=== PATIENT | male | born 1945 | race Caucasian/White ===

== ENCOUNTER 2019-03-30 07:07 | Emergency (ER) | payer MEDICARE, OTHER ==
[2019-03-30 07:21] VITALS: BP 165/64; PULSE 78
--- NOTE | 2019-03-30 08:55 | EDM.PDOC ---
ED HPI GENERAL MEDICAL PROBLEM - General Chief Complaint: General Stated Complaint: Right knee pain Time Seen by Provider: 03/30/19 08:00 Source of Information: Reports: Patient History Limitations: Reports: No Limitations - History of Present Illness INITIAL COMMENTS - FREE TEXT/NARRATIVE: Patient is a 73-year-old who seen with chief complaint of right knee pain which is been going on for 2 or 3 days patient is able to flex and extend the x-ray revealed significant degenerative joint disease Onset: Gradual Duration: Day(s):, Getting Worse Location: Reports: Lower Extremity, Right Quality: Reports: Ache, Sharp, Stabbing Severity: Moderate Improves with: Reports: Cold Therapy Worsens with: Reports: Movement Treatments CHROME [employer]ER: Reports: Acetaminophen, NSAIDS Right Knee Pain Score (Numeric/FACES): 9 - Related Data Allergies Allergy/AdvReac Type Severity Reaction Status Date / Time No Known Allergies Allergy Verified 03/30/19 07:21 Home Meds: Home Meds Aspirin [[place] Aspirin] 81 mg PO DAILY 06/15/13 [History] Escitalopram Oxalate [Lexapro] 30 mg PO DAILY 06/15/13 [History] Pregabalin [Lyrica] 75 mg PO TID 06/15/13 [History] glipiZIDE [Glipizide ER] 15 mg PO DAILY 06/15/13 [History] Dronabinol [Marinol] 2.5 mg PO BID PRN 08/25/14 [History] Pravastatin [Pravachol] 20 mg PO DAILY 08/25/14 [History] lamoTRIgine [Lamictal] 250 mg PO BID 08/25/14 [History] Cetirizine [ZyrTEC] 1 tab PO DAILY 03/30/19 [History] Empagliflozin [Jardiance] 25 mg PO DAILY 03/30/19 [History] Fish Oil/[place]-3 Fatty Acids [Fish Oil 1,000 MG] 03/30/19 [History] Gabapentin [Neurontin] 100 mg PO TID 03/30/19 [History] Lisinopril [Prinivil] 5 mg PO DAILY 03/30/19 [History] Pramipexole [Mirapex] 2 tab PO BID 03/30/19 [History] Ranitidine HCl [Acid Tubing Machine Tender] 75 mg PO DAILY 03/30/19 [History] SitaGLIPtin [Januvia] 100 mg PO DAILY 03/30/19 [History] traZODone HCl [Trazodone HCl] 50 mg PO BEDTIME 03/30/19 [History] Social & Family History - Living Situation & Occupation Occupation: Disabled ED ROS GENERAL - Review of Systems Review Of Systems: See Below Constitutional: Reports: Weakness HEENT: Reports: No Symptoms Respiratory: Reports: Shortness of Breath Cardiovascular: Reports: No Symptoms Endocrine: Reports: No Symptoms GI/Abdominal: Reports: No Symptoms : Reports: No Symptoms Musculoskeletal: Reports: Joint Pain Skin: Reports: No Symptoms Neurological: Reports: No Symptoms Psychiatric: Reports: No Symptoms Hematologic/Lymphatic: Reports: No Symptoms Immunologic: Reports: No Symptoms ED EXAM, GENERAL - Physical Exam Exam: See Below Exam Limited By: No Limitations General Appearance: Alert, WD/WN, No Apparent Distress Ears: Normal External Exam, Normal Canal, Hearing Grossly Normal, Normal TMs Ear Exam: Bilateral Ear: Auricle Normal, Canal Normal, TM normal Nose: Normal Inspection, Normal Mucosa, No Blood Throat/Mouth: Normal Inspection, Normal Lips, Normal Teeth, Normal Gums, Normal Oropharynx, Normal Voice, No Airway Compromise Head: Atraumatic, Normocephalic Neck: Normal Inspection, Supple, Non-Tender, Full Range of Motion Respiratory/Chest: No Respiratory Distress, Lungs Clear, Normal Breath Sounds, No Accessory Muscle Use, Chest Non-Tender Cardiovascular: Normal Peripheral Pulses, Regular Rate, Rhythm, No Edema, No Gallop, No JVD, No Murmur, No Rub GI/Abdominal: Normal Bowel Sounds, Soft, Non-Tender, No Organomegaly, No Distention, No Abnormal Bruit, No Mass (Male) Exam: Deferred Rectal (Males) Exam: Deferred Back Exam: Decreased Range of Motion Extremities: Joint Swelling, Limited Range of Motion Neurological: Alert, Oriented, CN II-XII Intact Psychiatric: Normal Affect, Normal Mood Skin Exam: Warm, Dry, Intact, Normal Color, No Rash Lymphatic: No Adenopathy Course - Vital Signs Last Recorded V/S: Last Vital Signs Temp 98.6 F 03/30/19 07:08 Pulse 78 03/30/19 07:08 Resp 16 03/30/19 07:08 BP 165/64 H 03/30/19 07:08 Pulse Ox 98 03/30/19 07:08 - Orders/Labs/Meds Orders: Active Orders 24 hr Category Date Time Status Head wo Cont [CT] Stat Exams 03/30/19 08:01 Stop Req Knee 3V Rt [CR] Stat Exams 03/30/19 08:16 Taken BASIC METABOLIC PANEL,BMP [CHEM] Stat Lab 03/30/19 08:30 Received CRP [C-REACTIVE PROTEIN] [CHEM] Stat Lab 03/30/19 08:30 Received DD [D-DIMER QUANTITATIVE] [COAG] Stat Lab 03/30/19 08:30 Received Labs: Laboratory Tests 03/30/19 Range/Units 08:30 WBC 9.1 (4.0-10.2) K/uL RBC 4.92 (4.33-5.41) M/uL Hgb 15.3 (13.1-16.8) g/dL Hct 45.4 (39.0-49.0) % MCV 92.3 (84.0-98.0) fL MCH 31.1 (28.2-33.3) pg MCHC 33.7 (31.7-36.0) g/dL RDW 12.3 (11.2-14.1) % Plt Count 248 (150-350) K/uL Neut % (Auto) 66.3 (45.0-80.0) % Lymph % (Auto) 22.1 (10.0-50.0) % [place] % (Auto) 6.5 (2.0-14.0) % Eos % (Auto) 4.0 (0.0-5.0) % Baso % (Auto) 1.1 (0.0-2.0) % Neut # (Auto) 6.02 (1.40-7.00) K/uL Lymph # (Auto) 2.01 (0.50-3.50) K/uL [place] # (Auto) 0.59 (0.00-1.00) K/uL Eos # (Auto) 0.36 (0.00-0.50) K/uL Baso # (Auto) 0.10 (0.00-0.20) K/uL Departure - Departure Time of Disposition: 08:55 Disposition: Home, Self-Care 01 Condition: Fair Clinical Impression: Right knee DJD - Discharge Information *PRESCRIPTION DRUG MONITORING PROGRAM REVIEWED*: No *COPY OF PRESCRIPTION DRUG MONITORING REPORT IN PATIENT SHANYA: No Referrals: Isa Phelps, [employer] [Primary Care Provider] - Care Plan Goals: Patient will be sent home and referred to Dr. Dumont with orthopedics for possible Synvisc injection patient is a diabetic. - My Orders Last 24 Hours: My Active Orders 03/30/19 08:01 Head wo Cont [CT] Stat 03/30/19 08:16 Knee 3V Rt [CR] Stat 03/30/19 08:30 BASIC METABOLIC PANEL,BMP [CHEM] Stat CRP [C-REACTIVE PROTEIN] [CHEM] Stat DD [D-DIMER QUANTITATIVE] [COAG] Stat - Assessment/Plan Last 24 Hours: My Active Orders 03/30/19 08:01 Head wo Cont [CT] Stat 03/30/19 08:16 Knee 3V Rt [CR] Stat 03/30/19 08:30 BASIC METABOLIC PANEL,BMP [CHEM] Stat CRP [C-REACTIVE PROTEIN] [CHEM] Stat DD [D-DIMER QUANTITATIVE] [COAG] Stat
== END 2019-03-30 09:15 | disposition home or self-care (01) ==
LOC: LL.ED 07:07
DX: M17.11 Unilateral primary osteoarthritis, right knee (principal); E11.9 Type 2 diabetes mellitus without complications; Z79.82 Long term (current) use of aspirin; Z79.84 Long term (current) use of oral hypoglycemic drugs
CPT/HCPCS: 36415; 73562-RT; 80048; 85025; 85379; 86140; 99282; 99283-25

== ENCOUNTER 2021-07-07 16:31 | Emergency (ER) | payer OTHER ==
[2021-07-07 16:51] VITALS: BP 146/50; PULSE 78
[2021-07-07 17:33] LABS: ANION GAP 9.6 meq/L (7-15); CHLORIDE,CL 101 mmol/L (98-107); SODIUM,NA 138 mmol/L (136-145)
[2021-07-07 17:55] LABS: RESPIRATORY SYNCYTIAL VIR NAA NEGATIVE (NEGATIVE)
[2021-07-07 18:00] LABS: CORONAVIRUS COVID-19 NAA POSITIVE (NEGATIVE)
== END 2021-07-07 18:30 | disposition home or self-care (01) ==
LOC: LL.ED 16:31
DX: U07.1 COVID-19 (principal); K21.9 Gastro-esophageal reflux disease without esophagitis; E11.9 Type 2 diabetes mellitus without complications; E78.00 Pure hypercholesterolemia, unspecified; I10 Essential (primary) hypertension; E66.9 Obesity, unspecified; Z68.30 Body mass index [BMI] 30.0-30.9, adult; Z79.82 Long term (current) use of aspirin; Z87.891 Personal history of nicotine dependence; Z79.899 Other long term (current) drug therapy
CPT/HCPCS: 0241U; 36415; 71046; 80053; 81001; 83605; 83735; 85025; 87086; 99284-25

== ENCOUNTER 2022-11-22 07:52 | Emergency (ER) | payer OTHER, MEDICARE ==
[2022-11-22] MEDS ORDERED: Sodium Chloride 0.9% 10 ML Syringe FLUSH PRN (08:21)
[2022-11-22] MEDS ORDERED: Insulin Regular, Human 100 Units/ML 3 ML Vial IV ONE (08:22)
[2022-11-22] MEDS ORDERED: Glucagon,Human Recombinant 1 MG Vial IM PRN (08:22)
[2022-11-22] MEDS ORDERED: 50% Dextrose in Water 50 ML Syringe IVPUSH PRN (08:22)
[2022-11-22 08:28] LABS: BASOPHILS ABSOLUTE AUTO 0.04 K/uL (0.00-0.20); BASOPHILS PERCENT AUTO 0.2 % (0.0-2.0); EOSINOPHILS ABSOLUTE AUTO 0.01 K/uL (0.00-0.50); HEMATOCRIT 36.9 % (39.0-49.0); LYMPHOCYTES ABSOLUTE AUTO 1.19 K/uL (0.50-3.50); LYMPHOCYTES PERCENT AUTO 5.8 % (10.0-50.0); MEAN CORPUSCULAR HEMOGLOBIN 29.6 pg (28.2-33.3); MEAN CORPUSCULAR HGB CONC 32.5 g/dL (31.7-36.0); MEAN CORPUSCULAR VOLUME 90.9 fL (84.0-98.0); MONOCYTES ABSOLUTE AUTO 0.52 K/uL (0.00-1.00); MONOCYTES PERCENT AUTO 2.5 % (2.0-14.0); NEUTROPHILS PERCENT AUTO 91.5 % (45.0-80.0); PLATELET COUNT,PLT 263 K/uL (150-350); RED BLOOD CELL COUNT 4.06 M/uL (4.33-5.41); RED CELL DISTRIBUTION WIDTH 13.4 % (11.2-14.1); WHITE BLOOD CELL COUNT,WBC 20.6 K/uL (4.0-10.2)
[2022-11-22] MEDS ORDERED: Sodium Chloride 0.9% 1,000 ML IV ONE (08:31)
[2022-11-22] MEDS: Nitroglycerin 0.4 MG Tab.SL SL PRN ×3 (08:31→09:03)
[2022-11-22 09:04] LABS: ALANINE AMINOTRANSFERASE,ALT 33 U/L (12-78); ALBUMIN 3.6 g/dL (3.4-5.0); ALKALINE PHOSPHATASE 169 IU/L (46-116); ASPARTATE AMNIOTRANSFERASE,AST 19 U/L (15-37); BILIRUBIN TOTAL 0.3 mg/dL (0.2-1.0); BLOOD UREA NITROGEN,BUN 63 mg/dL (7-18); CALCIUM 9.3 mg/dL (8.5-10.1); CARBON DIOXIDE,CO2 17.8 mmol/L (21.0-32.0); CHLORIDE,CL 98 mmol/L (98-107); CREATINE KINASE,CK 196 U/L (26-308); CREATININE 2.45 mg/dL (0.51-1.17); PRO B-TYPE NATRIUR PEPT,BNPPRO 1795 pg/mL (0-125); PROTEIN TOTAL,TP 7.4 g/dL (6.4-8.2); SODIUM,NA 129 mmol/L (136-145)
[2022-11-22 09:14] LABS: ESTIMATED GFR 26 mL/min (>=60); GLUCOSE RANDOM 592 mg/dL (70-99); POTASSIUM,K 5.8 mmol/L (3.5-5.1)
[2022-11-22] MEDS ORDERED: Heparin Sodium 5,000 Units/ML Vial IVPUSH ONE (12:04)
[2022-11-22] MEDS ORDERED: Aspirin 81 MG Tab.Chew PO ONE (12:06)
[2022-11-22] MEDS ORDERED: Heparin Sodium/0.45% NaCl 500 ML IV SCH (12:15)
[2022-11-22 12:48] VITALS: PULSE 66
[2022-11-22 12:58] LABS: APPEARANCE,URINE CLEAR; BILIRUBIN,URINE NEGATIVE (NEGATIVE); COLOR,URINE YELLOW; GLUCOSE,URINE 500 mg/dL (NEGATIVE); KETONES,URINE NEGATIVE (NEGATIVE); LEUKOCYTE ESTERASE,URINE NEGATIVE (NEGATIVE); NITRITE,URINE NEGATIVE (NEGATIVE); OCCULT BLOOD,URINE TRACE-LYSED (NEGATIVE); PROTEIN,URINE 100 mg/dL (NEGATIVE); UROBILINOGEN,URINE 0.2 E.U./dL (0.2-1.0)
[2022-11-22 13:03] LABS: BACTERIA,URINE NOT SEEN /HPF (NONE TO FEW); EPITHELIAL CELLS,URINE FEW /LPF; RBC,URINE 0-5 /HPF; WBC,URINE 0-5 /HPF
[2022-11-22 20:09] VITALS: BP 137/62
== END 2022-11-22 13:15 ==
LOC: LL.ED 07:52
DX: I21.4 Non-ST elevation (NSTEMI) myocardial infarction (principal); I10 Essential (primary) hypertension; E78.00 Pure hypercholesterolemia, unspecified; M19.90 Unspecified osteoarthritis, unspecified site; E11.42 Type 2 diabetes mellitus with diabetic polyneuropathy; E66.9 Obesity, unspecified; Z68.36 Body mass index [BMI] 36.0-36.9, adult; Z88.8 Allergy status to other drugs, medicaments and biological substances; Z79.82 Long term (current) use of aspirin; Z79.4 Long term (current) use of insulin; Z79.899 Other long term (current) drug therapy
CPT/HCPCS: 36415; 71045; 80053; 81001; 82550; 82947; 83605; 83880; 84484; 85025; 93005; 93010; 96361; 96365; 96376; 99284; 99285-25; A9270-GY; J1644; J1815-GY; J7030

== ENCOUNTER 2024-01-16 08:55 | Emergency (ER) | payer MEDICARE ==
[2024-01-16] MEDS ORDERED: Sodium Chloride 0.9% 10 ML Syringe FLUSH PRN (09:01)
[2024-01-16] MEDS: Aspirin 81 MG Tab.Chew PO ONE (09:14)
[2024-01-16 09:16] VITALS: BP 159/67; PULSE 82
[2024-01-16 09:27] LABS: BASOPHILS ABSOLUTE AUTO 0.09 K/uL (0.00-0.20); BASOPHILS PERCENT AUTO 0.7 % (0.0-2.0); EOSINOPHILS PERCENT AUTO 4.8 % (0.0-5.0); HEMATOCRIT 32.2 % (39.0-49.0); HEMOGLOBIN 10.4 g/dL (13.1-16.8); LYMPHOCYTES ABSOLUTE AUTO 1.89 K/uL (0.50-3.50); LYMPHOCYTES PERCENT AUTO 15.2 % (10.0-50.0); MEAN CORPUSCULAR HEMOGLOBIN 30.7 pg (28.2-33.3); MEAN CORPUSCULAR HGB CONC 32.3 g/dL (31.7-36.0); MONOCYTES PERCENT AUTO 6.4 % (2.0-14.0); NEUTROPHILS ABSOLUTE AUTO 9.06 K/uL (1.40-7.00); NEUTROPHILS PERCENT AUTO 72.9 % (45.0-80.0); PLATELET COUNT,PLT 265 K/uL (150-350); RED BLOOD CELL COUNT 3.39 M/uL (4.33-5.41); RED CELL DISTRIBUTION WIDTH 13.9 % (11.2-14.1); WHITE BLOOD CELL COUNT,WBC 12.4 K/uL (4.0-10.2)
[2024-01-16 09:58] LABS: ALBUMIN 3.3 g/dL (3.4-5.0); BILIRUBIN TOTAL 0.3 mg/dL (0.2-1.0); CALCIUM 8.4 mg/dL (8.5-10.1); CARBON DIOXIDE,CO2 17.8 mmol/L (21.0-32.0); CREATININE 2.34 mg/dL (0.51-1.17); EST CRCL DRUG DOSING (CG) 23.48 mL/min; POTASSIUM,K 4.9 mmol/L (3.5-5.1)
[2024-01-16 09:59] LABS: ANION GAP 17.1 meq/L (7-15)
== END 2024-01-16 10:24 | disposition home or self-care (01) ==
LOC: LL.ED 08:55
DX: R07.89 Other chest pain (principal); E78.00 Pure hypercholesterolemia, unspecified; I10 Essential (primary) hypertension; K21.9 Gastro-esophageal reflux disease without esophagitis; M19.90 Unspecified osteoarthritis, unspecified site; E11.42 Type 2 diabetes mellitus with diabetic polyneuropathy; E66.9 Obesity, unspecified; Z87.891 Personal history of nicotine dependence; Z79.82 Long term (current) use of aspirin; Z79.4 Long term (current) use of insulin; Z79.899 Other long term (current) drug therapy; Z88.8 Allergy status to other drugs, medicaments and biological substances; Z68.38 Body mass index [BMI] 38.0-38.9, adult
CPT/HCPCS: 36415; 71045; 80053; 83605; 84484; 85025; 93005; 93010; 99284; 99285; A9270-GY

== ENCOUNTER 2024-07-18 17:55 | Emergency (ER) | payer MEDICARE ==
[2024-07-18 18:20] LABS: BASOPHILS ABSOLUTE AUTO 0.06 K/uL (0.00-0.20); BASOPHILS PERCENT AUTO 0.6 % (0.0-2.0); EOSINOPHILS ABSOLUTE AUTO 0.68 K/uL (0.00-0.50); EOSINOPHILS PERCENT AUTO 7.2 % (0.0-5.0); HEMATOCRIT 33.5 % (39.0-49.0); HEMOGLOBIN 10.8 g/dL (13.1-16.8); IMMATURE GRAN ABSOLUTE AUTO 0.03 10^3/uL (0.00-0.04); IMMATURE GRAN PERCENT AUTO 0.3 % (0.0-0.4); LYMPHOCYTES ABSOLUTE AUTO 1.73 K/uL (0.50-3.50); LYMPHOCYTES PERCENT AUTO 18.4 % (10.0-50.0); MEAN CORPUSCULAR HEMOGLOBIN 29.9 pg (28.2-33.3); MEAN CORPUSCULAR HGB CONC 32.2 g/dL (31.7-36.0); MEAN CORPUSCULAR VOLUME 92.8 fL (84.0-98.0); MONOCYTES ABSOLUTE AUTO 0.94 K/uL (0.00-1.00); NEUTROPHILS ABSOLUTE AUTO 5.98 K/uL (1.40-7.00); NEUTROPHILS PERCENT AUTO 63.5 % (45.0-80.0); PLATELET COUNT,PLT 224 K/uL (150-350); RED BLOOD CELL COUNT 3.61 M/uL (4.33-5.41); RED CELL DISTRIBUTION WIDTH 14.6 % (11.2-14.1); WHITE BLOOD CELL COUNT,WBC 9.4 K/uL (4.0-10.2)
[2024-07-18 18:43] LABS: ALBUMIN 3.4 g/dL (3.4-5.0); BILIRUBIN TOTAL 0.4 mg/dL (0.2-1.0); CALCIUM 8.5 mg/dL (8.5-10.1); CARBON DIOXIDE,CO2 19.7 mmol/L (21.0-32.0); CREATININE 2.41 mg/dL (0.51-1.17); EST CRCL DRUG DOSING (CG) 24.05 mL/min; MAGNESIUM 2.3 mg/dL (1.8-2.4); POTASSIUM,K 4.2 mmol/L (3.5-5.1); PROTEIN TOTAL,TP 6.8 g/dL (6.4-8.2)
[2024-07-18 18:45] LABS: ANION GAP 16.5 meq/L (7-15)
[2024-07-18] MEDS: Sodium Chloride 0.9% 1,000 ML IV SCH (19:09)
[2024-07-18 20:29] VITALS: BP 124/69; PULSE 63
== END 2024-07-18 21:28 | disposition home or self-care (01) ==
LOC: LL.ED 17:55
DX: S06.0X0A Concussion without loss of consciousness, initial encounter (principal); I10 Essential (primary) hypertension; K21.9 Gastro-esophageal reflux disease without esophagitis; E78.00 Pure hypercholesterolemia, unspecified; E66.9 Obesity, unspecified; E11.9 Type 2 diabetes mellitus without complications; Z88.8 Allergy status to other drugs, medicaments and biological substances; Z79.82 Long term (current) use of aspirin; Z79.4 Long term (current) use of insulin; Z79.899 Other long term (current) drug therapy; Z68.34 Body mass index [BMI] 34.0-34.9, adult; W01.198A Fall on same level from slipping, tripping and stumbling with subsequent striking against other object, initial encounter
CPT/HCPCS: 36415; 80053; 82140; 83605; 83735; 85025; 87428-QW; 96360; 96361; 99284; 99284-25; J7030